=== PATIENT | female | born 1945 | race Caucasian/White ===

== ENCOUNTER 2016-06-27 09:30 | Outpatient (CLI) | payer MEDICARE, OTHER ==
[2015-12-27 10:20] VITALS: BP 134/71
[2016-06-27 10:19] LABS: eGFR (African) > 60; eGFR (Non-African) > 60
== END 2016-06-27 09:32 ==
LOC: LAB 09:30
PROVIDERS: ATTEND Family Medicine
DX: Z51.81 Encounter for therapeutic drug level monitoring (principal); Z79.899 Other long term (current) drug therapy
CPT/HCPCS: 36415; 80053; 80178

== ENCOUNTER 2017-05-15 15:01 | Outpatient (CLI) | payer MEDICARE, OTHER ==
[2015-12-27 10:20] VITALS: BP 134/71
== END 2017-05-15 15:02 ==
LOC: POD 15:01
PROVIDERS: ATTEND Podiatrist
DX: L60.0 Ingrowing nail (principal); B35.1 Tinea unguium
CPT/HCPCS: G0463

== ENCOUNTER 2017-07-03 10:00 | Outpatient (CLI) | payer MEDICARE, OTHER ==
[2015-12-27 10:20] VITALS: BP 134/71
[2017-07-03 10:53] LABS: eGFR (African) > 60; eGFR (Non-African) > 60
== END 2017-07-03 10:02 ==
LOC: LAB 10:00
PROVIDERS: ATTEND Family Medicine
DX: Z79.899 Other long term (current) drug therapy (principal)
CPT/HCPCS: 36415; 80053; 80178; 84443

== ENCOUNTER 2017-11-21 10:02 | Outpatient (CLI) | payer MEDICARE, OTHER ==
[2015-12-27 10:20] VITALS: BP 134/71
== END 2017-11-21 10:03 ==
LOC: POD 10:02
PROVIDERS: ATTEND Podiatrist Public Medicine
DX: L60.0 Ingrowing nail (principal); M79.674 Pain in right toe(s); M79.675 Pain in left toe(s); B35.1 Tinea unguium
CPT/HCPCS: 11721; G0463

== ENCOUNTER 2018-07-09 09:20 | Outpatient (CLI) | payer MEDICARE, OTHER ==
[2015-12-27 10:20] VITALS: BP 134/71
[2018-07-09 09:49] LABS: BASOPHILS % 0.6 (0.0-1.5); EOSINOPHILS % 4.4 % (0.0-6.8); MEAN CORPUSCULAR HEMOGLOBIN 29.7 pg (28.0-34.0); MONOCYTES % 5.8 % (0.0-11.0); NEUTROPHILS # 5.3 # k/uL (1.4-7.7)
[2018-07-09 11:20] LABS: eGFR (Non-African) > 60
== END 2018-07-09 09:22 ==
LOC: LAB 09:20
PROVIDERS: ATTEND Family Medicine
DX: Z79.899 Other long term (current) drug therapy (principal)
CPT/HCPCS: 36415; 80053; 80061; 84443; 85025